=== PATIENT | male | born 1990 | race Caucasian/White ===

== ENCOUNTER 2017-04-21 11:12 | Emergency (ER) | payer SELFPAY ==
[2017-04-21 11:21] VITALS: BP 136/72; PULSE 79; RESP 20; TEMP 98.2; O2SAT 100
--- NOTE | 2017-04-21 11:37 | PD ---
HPI Chief Complaint: Back/ Neck Pain or Injury Time Seen by Provider: 11:31 Travel History International Travel<30 days: No Contact w/Intl Traveler<30days: No Traveled to known affect area: No History of Present Illness HPI 26-year-old male presents to the emergency room for evaluation of low back pain after lifting 80-100 pound crate of potatoes. Patient states he didn't realize there was something on top of the crate and as he was lifting it began to fall off. He adjusted to catch the weight of the crate and had significant low back pain. He then had to lift the crate a second time to move it again. States since then he has had severe pain localized to the lumbar region radiating up and down his back. He applied ice and came straight to the emergency room. He has not taken anything for pain. Pain is worsened with ambulation, bending, or lying on his back. It improves when he is lying on his stomach. Denies loss of bowel or bladder control, saddle anesthesia, or lower extremity paresthesias. Patient denies chronic medical conditions or daily medications. [facility] Social History Alcohol Use: Yes Tobacco Use: Yes Substance Use: No Allergies-Medications (Allergen,Severity, Reaction): Coded Allergies: No Known Allergies (Unverified , 04/21/17) Reported Meds & Prescriptions Reported Meds & Active Scripts Active Robaxin (Methocarbamol) 750 Mg Tab 750 Mg PO Q8HR Ibuprofen 600 Mg Tab 600 Mg PO Q8HR PRN Review of Systems Except as stated in HPI: all other systems reviewed are Neg Physical Exam Narrative GENERAL: Well-nourished, well-developed male in no acute distress. Afebrile. Ambulatory. SKIN: Focused skin assessment warm/dry. HEAD: Normocephalic. EYES: No scleral icterus. No injection or drainage. NECK: Supple, trachea midline. No JVD or lymphadenopathy. CARDIOVASCULAR: Regular rate and rhythm without murmurs, gallops, or rubs. RESPIRATORY: Breath sounds equal bilaterally. No accessory muscle use. BACK: Moderate tenderness to palpation of the lumbar spine. No obvious deformity. No CVA tenderness. Positive straight leg raise on the left. Strength 5/5 and equal in bilateral lower extremities. Data Data Last Documented VS Vital Signs Date Time Temp Pulse Resp B/P Pulse Ox O2 Delivery O2 Flow Rate FiO2 04/21/17 11:21 98.2 79 20 136/72 100 Orders Spine, Lumbar - Ltd (Ap & Lat) (04/21/17 ) MDM Medical Decision Making Medical Screen Exam Complete: Yes Emergency Medical Condition: Yes Medical Record Reviewed: Yes Differential Diagnosis Muscle spasm, strain, fracture, slipped disc Narrative Course 26-year-old male presents to the emergency room for evaluation of low back pain after lifting a heavy crate of potatoes at work just prior to arrival. Patient reports midline pain with radiation up and down his back. Physical exam reveals moderate tenderness to palpation over the lumbar spine. No step-off deformity. Positive straight leg raise. Patient is ambulatory with antalgic gait. No focal neurological deficits. X-ray shows loss of disc height but no fractures are appreciated. Patient was discharged with ibuprofen and Robaxin and told to follow-up with a primary care physician for outpatient MRI if symptoms persist. Told to return for worsening symptoms. He understands and agrees to plan. Diagnosis Primary Impression: Low back strain Qualified Code: S39.012A - Low back strain, initial encounter Referrals: Primary Care Physician Patient Instructions: General Instructions, Low Back Strain (ED) Additional Instructions: Rest and drink plenty of fluids. Take Robaxin as directed, as needed for pain. Take ibuprofen with food as directed, as needed for pain. Apply ice to the affected area for 20 minutes at a time, as needed for pain and swelling. Follow-up with a primary care physician. Return to the emergency room for worsening symptoms. Med/Other Pt SpecificInfo: Prescription(s) given Scripts Methocarbamol (Robaxin)750 Mg Rtp271 Mg PO Q8HR #12 TAB Ref 0 Prov:Jovon Neri MD 04/21/17 Ibuprofen 600 Mg Toh602 Mg PO Q8HR PRN (PAIN) #21 TAB Ref 0 Prov:Jovon Neri MD 04/21/17 Disposition: 01 DISCHARGE HOME Condition: Stable Tori Combs Apr 21, 2017 11:37
[2017-04-21] MEDS ORDERED: ROBA750T PO (12:08)
[2017-04-21] MEDS ORDERED: IBUP-232 PO (12:08)
--- NOTE | 2017-04-21 12:12 | RADRPT ---
EXAM DATE/TIME: 04/21/2017 11:52 [facility] COMPARISON: No previous studies available for comparison. INDICATIONS : Low back pain from heavy lifting MEDICAL HISTORY : None. SURGICAL HISTORY : None. ENCOUNTER: Initial ACUITY: 1 day PAIN SCORE: 10/10 LOCATION: Bilateral low back FINDINGS: There is minimal loss of disc space height at L5-S1. There is good preservation of vertebral body he ights. Fractures are appreciated. CONCLUSION: Minimal loss of disc space height at L5-S1. Chris Rodney MD FACR on April 21, 2017 at 12:09 Board Certified Radiologist. This report was verified electronically.
== END 2017-04-21 12:21 | disposition home or self-care (01) ==
LOC: PHEFT 11:12
DX: S39.012A Strain of muscle, fascia and tendon of lower back, initial encounter (principal); Z72.0 Tobacco use; X50.0XXA Overexertion from strenuous movement or load, initial encounter; Y99.0 Civilian activity done for income or pay
CPT/HCPCS: 72100; 99283